=== PATIENT | male | born 1970 | race Caucasian/White ===

== ENCOUNTER 2020-12-18 10:32 | Inpatient (IN) | payer OTHER ==
[~2020-12-18] VITALS: Ht 185.4 cm; Wt 91.4 kg
[2020-12-20 09:02] VITALS: BP 115/80
== END 2020-12-20 12:10 | disposition home or self-care (01) | DRG 176 ==
LOC: ED 12:58 → EDIP 14:26 → 4WST 19:39
PROVIDERS: ADMIT Internal Medicine; ATTEND Internal Medicine
DX: I26.99 Other pulmonary embolism without acute cor pulmonale (principal); J98.11 Atelectasis; E87.1 Hypo-osmolality and hyponatremia; E88.09 Other disorders of plasma-protein metabolism, not elsewhere classified; E61.1 Iron deficiency; Z86.711 Personal history of pulmonary embolism; Z71.6 Tobacco abuse counseling